=== PATIENT | male | born 1990 | race Caucasian/White ===

== ENCOUNTER 2018-01-22 10:02 | Day surgery (SDC) | payer BC ==
[2018-01-18 16:11] VITALS: BMI 35.4
[~2018-01-22 10:02] MED LIST: LACTATED RINGERS 1,000 ML IV SCH
[2018-01-22 11:04] VITALS: RESP 16; TEMP 97.8
[2018-01-22] MEDS ORDERED: LIDOCAINE 1% 20 ML VIAL (10MG/ML) FOR IV START INTRADERMA ONE (11:11)
[2018-01-22] MEDS ORDERED: PROPOFOL 10 MG/ML 20 ML VIAL IV ONE (11:26)
[2018-01-22] MEDS ORDERED: LIDOCAINE 1% INJ 10MG/ML (20 ML MDV) ONE (11:26)
--- NOTE | 2018-01-22 11:56 | P.PCN ---
Date of Procedure: 01/22/18 Procedure(s) Performed: Procedure: Esophagogastroduodenoscopy and biopsy. Preoperative diagnosis: Gastroesophageal reflux. Postoperative diagnosis: 1. Small sliding hiatal hernia with no obvious esophagitis or complicated reflux disease. 2. Mild antral gastritis and duodenitis. 3. Multiple biopsies obtained from the duodenum, antrum and esophagus. Preparation sedation: Was provided by anesthesia. Brief clinical history: The patient is a 27-year-old male who has been troubled with reflux for the last year or 2 requiring omeprazole therapy. He has been having tightness sensation in his throat for the last couple months despite this therapy. This evaluation is to assess for the degree of his esophagitis and rule out complicated reflux disease or other pathology. Procedure: With the patient on his left lateral decubitus position and after informed consent and adequate sedation, I passed the Olympus-GIF 160 video upper endoscope through the cricopharyngeus down the esophagus. GE junction was around 40 cm from the incisors and there was a small sliding hiatal hernia but no obvious esophagitis or complicated reflux disease. The endoscope was then passed into the stomach which was insufflated with air and inspected in detail including the retroflex view in the cardia. There was some mottling and erythema in the antrum but no ulcers or erosions. Pyloric channel did not show any ulcers. Duodenal bulb showed erythema and patches of submucosal hemorrhage but no ulcers or erosions. Post bulbar area and descending duodenum appeared within normal limits. I obtained biopsies from the duodenum, antrum and esophagus then the endoscope was withdrawn. The patient tolerated the procedure well. Plan: The patient was reassured. Will await biopsy results. He will follow up with you as planned and further plans can be made based on his course and biopsy results. I will be happy to see him in the office based on his course.
[2018-01-22 12:24] VITALS: BP 128/80; PULSE 52
== END 2018-01-22 12:30 | disposition home or self-care (01) ==
LOC: ORWHC2ENDO 10:02
DX: K29.50 Unspecified chronic gastritis without bleeding (principal); K21.0 Gastro-esophageal reflux disease with esophagitis; K44.9 Diaphragmatic hernia without obstruction or gangrene; K29.80 Duodenitis without bleeding; Z79.899 Other long term (current) drug therapy
CPT/HCPCS: 88305; 43239; J2001; J2704

== ENCOUNTER → 2020-03-19 | Outpatient (CLI) | payer OTHER ==
--- NOTE | 2020-03-19 16:15 | XR ---
EXAMINATION TYPE: XR knee complete RT DATE OF EXAM: 03/19/2020 CLINICAL HISTORY: pain TECHNIQUE: Three views of the right knee are obtained. COMPARISON: None. FINDINGS: There is no acute fracture/dislocation. The tri-compartment joint spaces appear within no rmal limits. The overlying soft tissue appears unremarkable. Suprapatellar spurring noted. IMPRESSION: There is no acute fracture or dislocation.ICD 10 NO FRACTURE, INITIAL EVALUATION
== END | disposition home or self-care (01) ==
LOC: RADXRMAIN 15:52
PROVIDERS: ATTEND Emergency Medicine
DX: S83.91XA Sprain of unspecified site of right knee, initial encounter (principal)

== ENCOUNTER → 2020-03-24 | Outpatient (CLI) | payer OTHER ==
--- NOTE | 2020-03-24 22:49 | MR ---
EXAMINATION TYPE: MR knee RT wo con DATE OF EXAM: 03/24/2020 COMPARISON: Right knee x-ray 5 days ago. HISTORY: Pain in right knee x 6 weeks, sprain injury. TECHNIQUE: Multiplanar, multisequence images of the knee is performed without IV contrast. FINDINGS: MEDIAL MENISCUS: Anterior horn is intact without tear. Posterior horn shows some fraying along absorption plant operator ior margin with irregular linear signal consistent with tear sagittal image 9 for reference. LATERAL MENISCUS: Anterior and posterior horns are intact without tear. CRUCIATE LIGAMENTS: The anterior and posterior cruciate ligaments are intact and unremarkable. COLLATERAL LIGAMENTS: The medial collateral ligament and lateral collateral ligament complex are inta ct and unremarkable. EXTENSOR MECHANISM: Visualized quadriceps and patellar tendons are intact. EFFUSION: No significant suprapatellar joint effusion. POPLITEAL CYST: No popliteal/villavicencio cyst. TRICOMPARTMENT SPACES: Tricompartment joint spaces are preserved. No significant spurring is seen. CARTILAGE: Tricompartment articular cartilage is maintained. BONE MARROW SIGNAL: No focal abnormal marrow signal is appreciated. OTHER: No additional significant abnormality is appreciated. IMPRESSION: Subtle tearing posterior horn of medial meniscus otherwise unremarkable study.
== END ==
LOC: RADMRIMAIN 17:19
PROVIDERS: ATTEND Emergency Medicine
DX: S83.241A Other tear of medial meniscus, current injury, right knee, initial encounter (principal)

== ENCOUNTER 2022-03-08 08:02 | Emergency (ER) | payer BC, OTHER ==
[2022-03-08 08:07] VITALS: BP 155/96; PULSE 72; RESP 18; TEMP 98
[2022-03-08] MEDS ORDERED: FLUORESCEIN STRIPS 1 MG STRIP RIGHT EYE ONE (08:14)
[2022-03-08] MEDS ORDERED: PROPARACAINE 0.5% OPHTH DROPS 15 ML BTL RIGHT EYE STA (08:14)
--- NOTE | 2022-03-08 08:18 | ED ---
Eye Problem HPI - General Chief complaint: Eye Problems Stated complaint: eye problem Time Seen by Provider: 03/08/22 08:10 Source: patient Mode of arrival: ambulatory Limitations: no limitations - History of Present Illness Initial comments: Well-appearing 32-year-old male presents to the emergency room with complaints of possible foreign body in his right eye since Monday. Patient states he was working on a [employer] car when he got something in the eye. It has been aching and tearing since. He denies any vision changes. Does not wear contact lenses. He does have a history of foreign body in the eye and states it feels similar. chief complaint: eye pain, foreign body -: days(s) (2) Onset Description: sudden Location: right eye Place: street/outdoors If Injury: other (Occurred while working on a [employer] car) Consistency: constant Associated Symptoms: none - Related Data Patient Tetanus UTD: Yes Previous Rx's Medication Instructions Recorded Ciprofloxacin Ophth Soln [Ciloxan 2 drops RIGHT EYE Q4HR 5 Days #2.5 03/08/22 0.3% Ophth Soln] ml Allergies Allergy/AdvReac Type Severity Reaction Status Date / Time No Known Allergies Allergy Verified 03/08/22 09:17 Review of Systems ROS Statement: Those systems with pertinent positive or pertinent negative responses have been documented in the HPI. ROS Other: All systems not noted in ROS Statement are negative. Past Medical History Past Medical History: GERD/Reflux Additional Past Medical History / Comment(s): "I FEEL LIKE I'M CHOKING OR GOING TO THROW UP FREQUENTLY" History of Any Multi-Drug Resistant Organisms: None Reported Past Surgical History: Orthopedic Surgery Additional Past Surgical History / Comment(s): LEFT LEG PLATE AND SCREWS AND THEN REMOVED Past Anesthesia/Blood Transfusion Reactions: No Reported Reaction Past Psychological History: No Psychological Hx Reported Past Alcohol Use History: None Reported Past Drug Use History: None Reported - Past Family History Father Family Medical History: Cancer Additional Family Medical History / Comment(s): PROSTATE General Exam Limitations: no limitations General appearance: alert, in no apparent distress Head exam: Present: atraumatic Eye exam: Present: PERRL, EOMI, conjunctival injection (Right eye). Absent: scleral icterus, periorbital swelling, periorbital tenderness Pupils: Present: normal accommodation Expanded Eyelids: Normal Inspection: Bilateral Pupils: Regular, Round: Bilateral Sclera/Conjunctival: Foreign Body: Left (paula lamp exam revealed no foreign body, rust ring at 3oclock; attempted [place] brush removal unsuccessful) Neck exam: Absent: tenderness, meningismus Respiratory exam: Absent: respiratory distress, accessory muscle use Cardiovascular Exam: Present: regular rate Neurological exam: Present: alert, oriented X3 Psychiatric exam: Present: normal affect, normal mood Skin exam: Present: warm, dry, normal color. Absent: cyanosis, diaphoretic Course Vital Signs 03/08/22 08:04 Temperature 98.0 F Pulse Rate 72 Respiratory 18 Rate Blood Pressure 155/96 O2 Sat by Pulse 99 Oximetry Medical Decision Making - Medical Decision Making Patient presents with foreign body sensation to his right eye since Monday when working on a [employer] car. Paula lamp exam with fluorescein stain shows no foreign body. No Sowmya sign. No concern for globe rupture. There is a rust ring evident at 3:00. [place] brush removal attempted and unsuccessful. He denies any visual changes, no pain with extraocular eye movements. He was prescribed antibiotic eyedrops and referred to ophthalmology. Tetanus is up-to-date. Case discussed with Dr. Fregoso. Disposition Clinical Impression: Corneal rust ring of right eye Disposition: HOME SELF-CARE Condition: Good Instructions (If sedation given, give patient instructions): Corneal Abrasion (ED) Additional Instructions: Follow-up with ophthalmology this week and use antibiotic drops as prescribed. Return to the emergency room with any new or concerning symptoms including increased pain or visual loss. Prescriptions: Ciprofloxacin Ophth Soln [Ciloxan 0.3% Ophth Soln] 2 drops RIGHT EYE Q4HR 5 Days #2.5 ml Is patient prescribed a controlled substance at d/c from ED?: No Referrals: Ruy Tovar MD [Primary Care Provider] - 1-2 days Jemal Mei MD [STAFF PHYSICIAN] - 1-2 days Time of Disposition: 09:58
== END 2022-03-08 10:24 | disposition home or self-care (01) ==
LOC: EC 08:02
DX: T15.01XA Foreign body in cornea, right eye, initial encounter (principal); W22.8XXA Striking against or struck by other objects, initial encounter
CPT/HCPCS: 99283